=== PATIENT | female | born 1980 | race American Indian/Alaskan Native ===

== ENCOUNTER 2016-06-20 12:40 | Emergency (ER) | payer SELFPAY ==
[2016-06-20] MEDS ORDERED: TORADOL IM ONE (19:56)
[2016-06-20] MEDS ORDERED: FLEXERIL PO ONE (19:56)
[2016-06-20 20:40] VITALS: BP 127/74
--- NOTE | 2016-06-20 20:40 | Emergency Department Report ---
HPI - General Chief Complaint: Urogenital-Female Time Seen by Provider: 06/20/16 19:31 - HPI HPI: 36-year-old female complains of burning upon urination, increased urinary frequency and urgency 3 days. Past for vaginal bleeding, currently on her cycle. Positive for history of UTIs. Patient also complaining of bilateral lower back pain and left leg pain. She states that she pulled something while doing a split at work yesterday. Describes her pain as a 10 out of 10 constant ache that is worse with movement. Denies numbness, weakness, paresthesias. Denies rash or discharge, fever, chills, nausea, vomiting, chest pain, shortness of breath, pain. Ibuprofen 800 mg without relief. ED Past Medical Hx - Social History Smoking Status: Current Every Day Smoker Substance Use Type: Alcohol - Medications Home Medications: Home Medications Medication Instructions Recorded Confirmed Last Taken Type Permethrin 5% [Acticin 5% CREAM] 1 applicatio TP ONCE #1 tube 04/29/13 Unknown Rx hydrOXYzine HCL [Atarax] 10 mg PO Q6HR #15 tablet 04/29/13 Unknown Rx predniSONE [Deltasone] 1 tab PO BID #8 tablet 04/29/13 Unknown Rx Cyclobenzaprine HCl [Flexeril 5 MG 5 mg PO TID #12 tab 06/20/16 Unknown Rx TAB] Ibuprofen [Motrin 600 MG tab] 600 mg PO Q8H PRN #30 tablet 06/20/16 Unknown Rx Sulfamethoxazole/Trimethoprim 1 each PO BID #14 tablet 06/20/16 Unknown Rx [Bactrim DS TAB] ED Review of Systems ROS: Stated complaint: UTI/BACKPAIN/PULLED MUSCLE LF LEG Other details as noted in HPI Constitutional: denies: chills, fever, malaise Eyes: denies: eye pain ENT: denies: ear pain, throat pain, congestion Respiratory: denies: cough, shortness of breath, wheezing Cardiovascular: denies: chest pain, palpitations Endocrine: no symptoms reported Gastrointestinal: denies: abdominal pain, nausea, vomiting Genitourinary: urgency, dysuria, frequency. denies: discharge Musculoskeletal: back pain Skin: denies: rash Neurological: denies: headache, weakness, numbness, paresthesias Physical Exam - Physical Exam Vital Signs: Vital Signs 06/20/16 12:55 Temperature 99 F Pulse Rate 89 Blood Pressure 126/86 O2 Sat by Pulse 98 Oximetry Physical Exam: GENERAL: The patient is well-developed and well-nourished. Patient is in NAD. HEAD: Normocephalic. Atraumatic. CHEST/LUNGS: Clear to auscultation throughout. HEART/CARDIOVASCULAR: Regular rate and rhythm. No murmurs, rubs or gallops. ABDOMEN: Abdomen is soft, nontender. Bowel sounds normoactive. No guarding or rebound tenderness. Negative for CVA tenderness bilaterally. EXTREMITIES: Full range of motion. Peripheral pulses intact. Capillary refill less than 2 seconds. BACK: Full ROM. No midline tenderness. Bilateral paraspinal tenderness of lumbar region. No tenderness to palpation sciatic notch bilaterally. Negative straight leg raise bilaterally. NEURO: Alert and oriented x 3. Normal gait. ED Course Vital Signs 06/20/16 12:55 Temperature 99 F Pulse Rate 89 Blood Pressure 126/86 O2 Sat by Pulse 98 Oximetry ED Medical Decision Making - Lab Data Vital Signs 06/20/16 06/20/16 12:55 20:37 Temperature 99 F 98.4 F Pulse Rate 89 83 Respiratory 18 Rate Blood Pressure 126/86 Blood Pressure 127/74 [Left] O2 Sat by Pulse 98 98 Oximetry Lab Results 06/20/16 Range/Units 20:16 Urine Color Yellow (Yellow) Urine Turbidity Cloudy (Clear) Urine pH 6.0 (5.0-7.0) Ur Specific [place] 1.020 (1.003-1.030) Urine Protein 30 mg/dl (Negative) mg/dL Urine Glucose (UA) Neg (Negative) mg/dL Urine Ketones Neg (Negative) mg/dL Urine Blood Lg (Negative) Urine Nitrite Pos (Negative) Urine Bilirubin Neg (Negative) Urine Urobilinogen < 2.0 (<2.0) mg/dL Ur Leukocyte Esterase Mod (Negative) Urine WBC (Auto) 123.0 H (0.0-6.0) /HPF Urine RBC (Auto) 7.0 (0.0-6.0) /HPF U Epithel Cells (Auto) 1.0 (0-13.0) /HPF Urine Bacteria (Auto) 4+ (Negative) /HPF Urine Mucus 2+ /HPF - Medical Decision Making 36-year-old female presents today with urinary symptoms and lower back pain. Her urinalysis reveals positive nitrites, moderate leukocyte esterase, elevated urine WBC and large blood. Patient was given Flexeril and Toradol and reports LBP relief. Patient is in no acute distress at this time. She will be discharged home and is encouraged to follow up with a primary care provider. She will be sent home on Bactrim, Flexeril and ibuprofen and is encouraged to return to the emergency room for any worsening symptoms. Critical care attestation.: If time is entered above; I have spent that time in minutes in the direct care of this critically ill patient, excluding procedure time. ED Disposition Clinical Impression: UTI (urinary tract infection) Qualifiers: Urinary tract infection type: acute cystitis Hematuria presence: with hematuria Qualified Code(s): N30.01 - Acute cystitis with hematuria Lumbar strain Qualifiers: Encounter type: initial encounter Qualified Code(s): S39.012A - Strain of muscle, fascia and tendon of lower back, initial encounter Disposition: DISCHARGED TO HOME OR SELFCARE Is pt being admited?: No Does the pt Need Aspirin: No Condition: Stable Instructions: Muscle Strain (ED), Urinary Tract Infection in Women (ED) Additional Instructions: Follow-up with primary care provider. Return to the emergency department if symptoms worsen. Prescriptions: Sulfamethoxazole/Trimethoprim [Bactrim DS TAB] 1 each PO BID #14 tablet Cyclobenzaprine HCl [Flexeril 5 MG TAB] 5 mg PO TID #12 tab Ibuprofen [Motrin 600 MG tab] 600 mg PO Q8H PRN #30 tablet PRN Reason: Pain Referrals: PRIMARY CARE, [Primary Care Provider] - 3-5 Days [facility] [Outside] - 3-5 Days Forms: Work/School Release Form(ED) Time of Disposition: 21:34
[2016-06-20 21:03] LABS: Bacteria,Urine 4+ /HPF (Negative); Bilirubin,Urine NEG (Negative); Blood,Urine LG (Negative); Ketones,Urine NEG (Negative); Leukocyte Esterase,Urine MOD (Negative); Mucus,Urine 2+ /HPF; Nitrite,Urine POS (Negative); Urobilinogen,Urine < 2.0 mg/dL (<2.0)
== END 2016-06-20 21:41 | disposition home or self-care (01) ==
LOC: ED 12:40
DX: S39.012A Strain of muscle, fascia and tendon of lower back, initial encounter (principal); N30.01 Acute cystitis with hematuria; F17.200 Nicotine dependence, unspecified, uncomplicated; X58.XXXA Exposure to other specified factors, initial encounter; Y93.89 Activity, other specified; Y99.9 Unspecified external cause status; Y92.89 Other specified places as the place of occurrence of the external cause
CPT/HCPCS: 81001; 96372; 99283; J1885